=== PATIENT | female | born 1955 | race Caucasian/White ===

== ENCOUNTER 2017-10-17 10:55 | Inpatient (IN) | payer OTHER ==
[2017-10-17] MEDS ORDERED: METHYLPREDNISOLONE 125 MG INJ IM (12:01)
[2017-10-17] MEDS: IPRATROPIUM (NEB) 0.5 MG/2.5 ML AMP NEB (12:37)
[2017-10-17] MEDS: ALBUTEROL 0.083% (NEB) 2.5 MG/3 ML AMP NEB (12:37)
[2017-10-17] MEDS: METHYLPREDNISOLONE 125 MG INJ IV (12:39)
[2017-10-17] MEDS: IBUPROFEN 600 MG TAB PO (12:39)
[2017-10-17] MEDS: ACETAMINOPHEN 500 MG TAB PO (12:39)
[2017-10-17 12:59] LABS: ADD MAN DIFF? NO
[2017-10-17 13:07] LABS: BASOPHILS % 0.3 % (0.0-2.0); EOSINOPHILS % 0.5 % (0.0-7.0); HEMOGLOBIN 14.1 g/dl (12.0-16.0); LYMPHOCYTES # 1.1 10^3/ul (0.8-2.9); LYMPHOCYTES % 18.6 % (15.0-51.0); MEAN CORPUSCULAR HEMOGLOBIN 27.3 pg (29.0-33.0); MEAN CORPUSCULAR VOLUME 85.3 fl (82.0-101.0); MEAN PLATELET VOLUME 9.3 fl (7.4-10.4); MONOCYTE # 0.4 10^3/ul (0.3-0.9); MONOCYTES % 6.1 % (0.0-11.0); NEUTROPHIL # 4.4 10^3/ul (1.6-7.5); NEUTROPHILS % 74.2 % (39.0-77.0); PLATELET COUNT 271 10^3/UL (140-415); RED BLOOD COUNT 5.16 10^6/ul (4.20-5.40); RED CELL DISTRIBUTION WIDTH 14.1 % (11.5-14.5)
[2017-10-17 13:07] LABS: WHITE BLOOD COUNT 5.9 10^3/ul (4.8-10.8)
[2017-10-17 13:29] LABS: ANION GAP 14 (8-16); BLOOD UREA NITROGEN 25 mg/dl (7-20); CALCIUM 9.4 mg/dl (8.4-10.2); CARBON DIOXIDE 28 mmol/L (21-31); CHLORIDE 105 mmol/L (97-110); CREATININE 0.81 mg/dl (0.44-1.00); GLUCOSE 209 mg/dl (70-220); POTASSIUM 4.4 mmol/L (3.5-5.1); SODIUM 143 mmol/L (135-144)
[2017-10-17] MEDS: LEVALBUTEROL (NEB) 1.25 MG/0.5 ML AMP INH ×2 (15:17→16:40)
[2017-10-17] MEDS ORDERED: ACETAMINOPHEN 325 MG TAB PO ×2 (19:30→20:30)
[2017-10-17] MEDS ORDERED: ONDANSETRON 4 MG INJ IV ×2 (19:30→20:30)
[2017-10-17] MEDS ORDERED: NACL 0.9% 3 ML SYG IV (20:30)
[2017-10-17] MEDS ORDERED: BISACODYL (EC) 5 MG TAB PO (20:30)
[2017-10-17] MEDS ORDERED: DOCUSATE SODIUM 100 MG CAP PO (20:30)
[2017-10-17] MEDS ORDERED: DEXTROSE 50% 50 ML SYRINGE IV ×2 (21:30)
[2017-10-17] MEDS ORDERED: GLUCAGON 1 MG INJ IM (21:30)
[2017-10-17] MEDS ORDERED: GLUCOSE GEL 15 GRAM TUBE BUCCAL (21:30)
[2017-10-17] MEDS ORDERED: GLUCOSE GEL 15 GRAM TUBE PO ×2 (21:30)
[2017-10-17 21:46] LABS: D-DIMER 391.83 ng/ml (<460)
[2017-10-17 22:27] LABS: LACTIC ACID 7.3 mmol/L (0.5-2.0)
[2017-10-17 23:07] LABS: B-TYPE NATRIURETIC PEPTIDE 63 PG/ML (0-125)
[2017-10-17] MEDS: CEFTRIAXONE 1 GM/50 ML (PMX) 50 ML IVPB (23:25)
[2017-10-17] MEDS: ATORVASTATIN 10 MG TAB PO (23:38)
[2017-10-17] MEDS: INSULIN GLARGINE [LANtus] 3 ML PEN SC (23:45)
[2017-10-17] MEDS: INSULIN ASPART [NOVOLOG] 3 ML PEN SC (23:48)
[2017-10-17] MEDS: AZITHROMYCIN 500MG/NS (PMX) 250 ML IVPB (23:59)
[2017-10-18] MEDS: SOD CHLORIDE 0.9% 500 ML IV (00:47)
[2017-10-18] MEDS: ACCU-CHEK XX ×2 (00:59→02:11)
[2017-10-18] MEDS ORDERED: SOD CHLORIDE 0.9% 500 ML IV (01:00)
[2017-10-18 01:23] LABS: ALANINE AMINOTRANSFERASE 52 IU/L (13-69); ALBUMIN/GLOBULIN RATIO 1.21; ALKALINE PHOSPHATASE 73 IU/L (42-121); ANION GAP 21 (8-16); ASPARTATE AMINO TRANSFERASE 43 IU/L (15-46); BLOOD UREA NITROGEN 27 mg/dl (7-20); CALCIUM 9.2 mg/dl (8.4-10.2); CARBON DIOXIDE 23 mmol/L (21-31); CHLORIDE 102 mmol/L (97-110); CREATININE 0.78 mg/dl (0.44-1.00); POTASSIUM 5.1 mmol/L (3.5-5.1); SODIUM 141 mmol/L (135-144); TOTAL PROTEIN 7.3 g/dl (6.1-8.1)
[2017-10-18 01:24] LABS: LACTIC ACID 6.4 mmol/L (0.5-2.0)
[2017-10-18 01:25] LABS: GLUCOSE 482 mg/dl (70-220)
[2017-10-18 01:29] LABS: ADD MAN DIFF? NO
[2017-10-18] MEDS: LEVALBUTEROL (NEB) 0.63 MG/3 ML AMP HHN ×6 (01:33→21:23)
[2017-10-18 01:34] LABS: HEMOGLOBIN 12.1 g/dl (12.0-16.0); LYMPHOCYTES # 0.8 10^3/ul (0.8-2.9); MEAN CORPUSCULAR HEMOGLOBIN 27.4 pg (29.0-33.0); MEAN CORPUSCULAR HGB CONC 31.8 g/dl (32.0-37.0); MEAN CORPUSCULAR VOLUME 86.2 fl (82.0-101.0); MEAN PLATELET VOLUME 9.1 fl (7.4-10.4); MONOCYTE # 0.1 10^3/ul (0.3-0.9); MONOCYTES % 2.7 % (0.0-11.0); NEUTROPHIL # 2.8 10^3/ul (1.6-7.5); NEUTROPHILS % 74.8 % (39.0-77.0); PLATELET COUNT 250 10^3/UL (140-415); RED BLOOD COUNT 4.41 10^6/ul (4.20-5.40); RED CELL DISTRIBUTION WIDTH 14.2 % (11.5-14.5)
[2017-10-18 01:34] LABS: WHITE BLOOD COUNT 3.8 10^3/ul (4.8-10.8)
[2017-10-18] MEDS: SOD CHLORIDE 0.9% 1,000 ML IV ×3 (01:57→23:10)
[2017-10-18] MEDS: PIPER-TAZO 3.375 GM IV (PMX) 100 ML IVPB ×4 (02:33→17:55)
[2017-10-18] MEDS: INSULIN ASPART [NOVOLOG] 3 ML PEN SC ×6 (02:45→20:50)
[2017-10-18] MEDS: PANTOPRAZOLE (EC) 40 MG TAB PO (06:06)
[2017-10-18 07:26] LABS: ADD MAN DIFF? NO
[2017-10-18 08:07] LABS: ALANINE AMINOTRANSFERASE 43 IU/L (13-69); ALBUMIN 3.3 g/dl (3.3-4.9); ALBUMIN/GLOBULIN RATIO 1.03; ALKALINE PHOSPHATASE 53 IU/L (42-121); ANION GAP 14 (8-16); ASPARTATE AMINO TRANSFERASE 34 IU/L (15-46); BLOOD UREA NITROGEN 23 mg/dl (7-20); CALCIUM 8.3 mg/dl (8.4-10.2); CARBON DIOXIDE 25 mmol/L (21-31); CHLORIDE 106 mmol/L (97-110); CHOL/HDL RATIO 6.1 RATIO; CHOLESTEROL 153 mg/dl (100-200); CREATININE 0.63 mg/dl (0.44-1.00); GLUCOSE 293 mg/dl (70-220); HDL CHOLESTEROL 25 mg/dl (35-98); LDL CHOLESTEROL,CALCULATED 100 mg/dl; MAGNESIUM 1.7 mg/dl (1.7-2.5); POTASSIUM 4.9 mmol/L (3.5-5.1); SODIUM 140 mmol/L (135-144); TOTAL PROTEIN 6.5 g/dl (6.1-8.1); TRIGLYCERIDES 139 mg/dl (0-149)
[2017-10-18 08:10] LABS: LACTIC ACID 2.3 mmol/L (0.5-2.0)
[2017-10-18] MEDS: PAROXETINE 20 MG TAB PO (08:32)
[2017-10-18] MEDS: ASPIRIN 81 MG TAB PO (08:32)
[2017-10-18 08:48] LABS: WHITE BLOOD COUNT 4.1 10^3/ul (4.8-10.8)
[2017-10-18 08:48] LABS: HEMATOCRIT 37.2 % (37.0-47.0); LYMPHOCYTES # 1.3 10^3/ul (0.8-2.9); LYMPHOCYTES % 30.4 % (15.0-51.0); MEAN CORPUSCULAR HEMOGLOBIN 27.7 pg (29.0-33.0); MEAN CORPUSCULAR HGB CONC 32.3 g/dl (32.0-37.0); MEAN CORPUSCULAR VOLUME 85.9 fl (82.0-101.0); MONOCYTE # 0.3 10^3/ul (0.3-0.9); MONOCYTES % 7.3 % (0.0-11.0); NEUTROPHIL # 2.5 10^3/ul (1.6-7.5); NEUTROPHILS % 61.8 % (39.0-77.0); PLATELET COUNT 217 10^3/UL (140-415); RED BLOOD COUNT 4.33 10^6/ul (4.20-5.40); RED CELL DISTRIBUTION WIDTH 14.1 % (11.5-14.5)
[2017-10-18 10:19] LABS: HEMOGLOBIN A1C 8.3 % (0-5.9)
[2017-10-18 13:43] LABS: ADD UMIC NO; UR ASCORBIC ACID NEGATIVE (NEGATIVE); UR BILIRUBIN (Dip) NEGATIVE (NEGATIVE); UR BLOOD (Dip) NEGATIVE (NEGATIVE); UR CLARITY CLEAR (CLEAR); UR COLOR YELLOW (YELLOW); UR GLUCOSE (Dip) 3+ mg/dL (NEGATIVE); UR KETONES (Dip) TRACE mg/dL (NEGATIVE); UR LEUKOCYTE ESTERASE (Dip) NEGATIVE Leu/ul (NEGATIVE); UR NITRITE (Dip) NEGATIVE (NEGATIVE); UR SPECIFIC GRAVITY (Dip) 1.028 (1.003-1.030); UR TOTAL PROTEIN (Dip) NEGATIVE (NEGATIVE); UR UROBILINOGEN (Dip) NEGATIVE (NEGATIVE)
[2017-10-18 15:02] LABS: LACTIC ACID 4.4 mmol/L (0.5-2.0)
[2017-10-18] MEDS: INSULIN GLARGINE [LANtus] 3 ML PEN SC (21:14)
[2017-10-18] MEDS: ATORVASTATIN 10 MG TAB PO (21:37)
[2017-10-19] MEDS: PIPER-TAZO 3.375 GM IV (PMX) 100 ML IVPB ×5 (00:54→23:15)
[2017-10-19] MEDS: ACCU-CHEK XX (01:08)
[2017-10-19] MEDS: LEVALBUTEROL (NEB) 0.63 MG/3 ML AMP HHN ×6 (01:13→20:12)
[2017-10-19] MEDS: PANTOPRAZOLE (EC) 40 MG TAB PO (05:58)
[2017-10-19 06:07] LABS: ADD MAN DIFF? NO
[2017-10-19 06:20] LABS: WHITE BLOOD COUNT 8.6 10^3/ul (4.8-10.8)
[2017-10-19 06:20] LABS: BASOPHILS % 0.5 % (0.0-2.0); EOSINOPHILS # 0.1 10^3/ul (0.0-0.5); EOSINOPHILS % 0.9 % (0.0-7.0); HEMOGLOBIN 12.5 g/dl (12.0-16.0); LYMPHOCYTES # 3.7 10^3/ul (0.8-2.9); LYMPHOCYTES % 42.5 % (15.0-51.0); MEAN CORPUSCULAR HEMOGLOBIN 27.4 pg (29.0-33.0); MEAN CORPUSCULAR HGB CONC 31.3 g/dl (32.0-37.0); MEAN CORPUSCULAR VOLUME 87.7 fl (82.0-101.0); MONOCYTE # 0.4 10^3/ul (0.3-0.9); MONOCYTES % 5.1 % (0.0-11.0); NEUTROPHIL # 4.4 10^3/ul (1.6-7.5); NEUTROPHILS % 50.5 % (39.0-77.0); PLATELET COUNT 289 10^3/UL (140-415); RED BLOOD COUNT 4.56 10^6/ul (4.20-5.40); RED CELL DISTRIBUTION WIDTH 14.1 % (11.5-14.5)
[2017-10-19 06:28] LABS: POSITIVE DIFF @See below
[2017-10-19 06:31] LABS: PHOSPHORUS 3.2 mg/dl (2.5-4.9)
[2017-10-19 06:31] LABS: MAGNESIUM 1.5 mg/dl (1.7-2.5)
[2017-10-19 06:32] LABS: LACTIC ACID 1.5 mmol/L (0.5-2.0)
[2017-10-19 06:33] LABS: ALANINE AMINOTRANSFERASE 42 IU/L (13-69); ALBUMIN 3.5 g/dl (3.3-4.9); ALBUMIN/GLOBULIN RATIO 1.02; ALKALINE PHOSPHATASE 55 IU/L (42-121); ANION GAP 15 (8-16); ASPARTATE AMINO TRANSFERASE 33 IU/L (15-46); BILIRUBIN,INDIRECT 0.1 mg/dl (0-1.1); BILIRUBIN,TOTAL 0.1 mg/dl (0.2-1.3); BLOOD UREA NITROGEN 21 mg/dl (7-20); CALCIUM 8.7 mg/dl (8.4-10.2); CARBON DIOXIDE 28 mmol/L (21-31); CHLORIDE 108 mmol/L (97-110); CREATININE 0.83 mg/dl (0.44-1.00); GLUCOSE 114 mg/dl (70-220); POTASSIUM 3.9 mmol/L (3.5-5.1); SODIUM 147 mmol/L (135-144); TOTAL PROTEIN 6.9 g/dl (6.1-8.1)
[2017-10-19] MEDS: INSULIN ASPART [NOVOLOG] 3 ML PEN SC ×7 (08:00→20:15)
[2017-10-19] MEDS: ASPIRIN 81 MG TAB PO (08:00)
[2017-10-19] MEDS: PAROXETINE 20 MG TAB PO (08:03)
[2017-10-19] MEDS: TIOTROPIUM 18 MCG CAPSULE INHA DEV INH (12:54)
[2017-10-19] MEDS: SALMETEROL/FLUTICASONE 250/50 INHA INH ×2 (12:54→20:11)
[2017-10-19] MEDS: SOD CHLORIDE 0.9% 1,000 ML IV ×2 (16:22→20:20)
[2017-10-19] MEDS: metFORMIN 500 MG TAB PO (17:17)
[2017-10-19] MEDS: ATORVASTATIN 10 MG TAB PO (20:11)
[2017-10-19] MEDS: INSULIN GLARGINE [LANtus] 3 ML PEN SC (20:28)
[2017-10-20] MEDS: LEVALBUTEROL (NEB) 0.63 MG/3 ML AMP HHN ×6 (00:49→20:26)
[2017-10-20] MEDS: ACCU-CHEK XX (02:00)
[2017-10-20] MEDS: PANTOPRAZOLE (EC) 40 MG TAB PO (05:45)
[2017-10-20] MEDS: PIPER-TAZO 3.375 GM IV (PMX) 100 ML IVPB ×3 (06:39→19:14)
[2017-10-20] MEDS: ASPIRIN 81 MG TAB PO (08:08)
[2017-10-20] MEDS: metFORMIN 500 MG TAB PO ×2 (08:08→17:20)
[2017-10-20] MEDS: TIOTROPIUM 18 MCG CAPSULE INHA DEV INH (08:08)
[2017-10-20] MEDS: SALMETEROL/FLUTICASONE 250/50 INHA INH ×2 (08:08→20:01)
[2017-10-20] MEDS: INSULIN ASPART [NOVOLOG] 3 ML PEN SC ×7 (08:16→20:09)
[2017-10-20] MEDS: PAROXETINE 20 MG TAB PO (08:17)
[2017-10-20] MEDS: MAGNESIUM SULFATE 4 GM/100 ML 100 ML IVPB (14:50)
[2017-10-20] MEDS: ATORVASTATIN 10 MG TAB PO (20:01)
[2017-10-20] MEDS: INSULIN GLARGINE [LANtus] 3 ML PEN SC (20:09)
[2017-10-21] MEDS: PIPER-TAZO 3.375 GM IV (PMX) 100 ML IVPB ×3 (00:01→12:07)
[2017-10-21] MEDS: LEVALBUTEROL (NEB) 0.63 MG/3 ML AMP HHN ×4 (00:58→12:57)
[2017-10-21] MEDS: ACCU-CHEK XX (01:35)
[2017-10-21] MEDS: PANTOPRAZOLE (EC) 40 MG TAB PO (05:25)
[2017-10-21] MEDS: PAROXETINE 20 MG TAB PO (08:39)
[2017-10-21] MEDS: metFORMIN 500 MG TAB PO (08:39)
[2017-10-21] MEDS: ASPIRIN 81 MG TAB PO (08:39)
[2017-10-21] MEDS: SALMETEROL/FLUTICASONE 250/50 INHA INH (08:40)
[2017-10-21] MEDS: TIOTROPIUM 18 MCG CAPSULE INHA DEV INH (08:41)
[2017-10-21 08:48] LABS: ADD MAN DIFF? NO
[2017-10-21] MEDS: INSULIN ASPART [NOVOLOG] 3 ML PEN SC ×4 (08:49→12:15)
[2017-10-21 08:51] LABS: BASOPHILS % 0.3 % (0.0-2.0); EOSINOPHILS # 0.1 10^3/ul (0.0-0.5); EOSINOPHILS % 0.8 % (0.0-7.0); HEMOGLOBIN 13.2 g/dl (12.0-16.0); LYMPHOCYTES # 3.3 10^3/ul (0.8-2.9); LYMPHOCYTES % 33.7 % (15.0-51.0); MEAN CORPUSCULAR HEMOGLOBIN 26.9 pg (29.0-33.0); MEAN CORPUSCULAR HGB CONC 31.4 g/dl (32.0-37.0); MEAN CORPUSCULAR VOLUME 85.7 fl (82.0-101.0); MONOCYTE # 0.4 10^3/ul (0.3-0.9); MONOCYTES % 3.9 % (0.0-11.0); NEUTROPHIL # 5.9 10^3/ul (1.6-7.5); NEUTROPHILS % 60.3 % (39.0-77.0); PLATELET COUNT 278 10^3/UL (140-415); RED CELL DISTRIBUTION WIDTH 13.9 % (11.5-14.5)
[2017-10-21 08:51] LABS: WHITE BLOOD COUNT 9.7 10^3/ul (4.8-10.8)
[2017-10-21 09:19] LABS: ALANINE AMINOTRANSFERASE 43 IU/L (13-69); ALKALINE PHOSPHATASE 62 IU/L (42-121); ANION GAP 12 (8-16); ASPARTATE AMINO TRANSFERASE 28 IU/L (15-46); BILIRUBIN,INDIRECT 0.3 mg/dl (0-1.1); BILIRUBIN,TOTAL 0.3 mg/dl (0.2-1.3); BLOOD UREA NITROGEN 19 mg/dl (7-20); CALCIUM 9.3 mg/dl (8.4-10.2); CARBON DIOXIDE 32 mmol/L (21-31); CHLORIDE 104 mmol/L (97-110); CREATININE 0.78 mg/dl (0.44-1.00); GLUCOSE 160 mg/dl (70-220); POTASSIUM 4.5 mmol/L (3.5-5.1); SODIUM 143 mmol/L (135-144); TOTAL PROTEIN 6.9 g/dl (6.1-8.1)
[2017-10-21 09:20] LABS: ALBUMIN 3.5 g/dl (3.3-4.9); ALBUMIN/GLOBULIN RATIO 1.02
[2017-10-21 09:23] LABS: MAGNESIUM 1.7 mg/dl (1.7-2.5)
== END 2017-10-21 13:49 | disposition home or self-care (01) | DRG 871 ==
LOC: MS4 19:27 → FTE 10:55
DX: A41.9 Sepsis, unspecified organism (principal); J18.9 Pneumonia, unspecified organism; E87.2 Acidosis; R65.20 Severe sepsis without septic shock; J45.909 Unspecified asthma, uncomplicated; E11.9 Type 2 diabetes mellitus without complications; E78.5 Hyperlipidemia, unspecified; J40 Bronchitis, not specified as acute or chronic; F91.9 Conduct disorder, unspecified; K76.0 Fatty (change of) liver, not elsewhere classified
CPT/HCPCS: 71045; 71250; 80048; 80053; 80061; 81003; 82962; 83036; 83605; 83735; 83880; 84100; 84443; 85025; 85378; 87400; 93005; 94640; 94644; 94645; 94664; 96372; 96374; 96375; 99285-25; G0378

== ENCOUNTER 2019-01-13 14:10 | Emergency (ER) | payer OTHER | END 2019-01-13 15:40 | disposition home or self-care (01) | LOC: FTE 14:10 | DX: S01.81XA Laceration without foreign body of other part of head, initial encounter (principal); R51 Headache; E11.9 Type 2 diabetes mellitus without complications; W18.49XA Other slipping, tripping and stumbling without falling, initial encounter; Y92.89 Other specified places as the place of occurrence of the external cause; Z79.4 Long term (current) use of insulin; Z79.82 Long term (current) use of aspirin | CPT/HCPCS: 70450; 99284-25 ==

== ENCOUNTER 2019-01-22 09:48 | Emergency (ER) | payer OTHER | END 2019-01-22 10:34 | disposition home or self-care (01) | LOC: FTE 09:48 | DX: Z48.02 Encounter for removal of sutures (principal); E11.9 Type 2 diabetes mellitus without complications; Z79.4 Long term (current) use of insulin; Z79.82 Long term (current) use of aspirin | CPT/HCPCS: 99281; Z7502 ==